=== PATIENT | female | born 1995 | race African-American/Black ===

== ENCOUNTER 2024-11-13 13:00 | Outpatient (CLI) | payer MEDICAID, SELFPAY ==
--- NOTE | 2024-11-13 13:00 | CRLHL7_ITS ---
For Patients: As a result of the Cures Act, medical imaging exams and procedure reports are released immediately into your electronic medical record. You may view this report before your referring provider. If you have questions, please contact your health care provider. OB ULTRASOUND FIRST TRIMESTER, 11/13/2024 INDICATION: Dating and viability. SURGERY: None. TECHNIQUE: Real time perez scale imaging of the fetus was performed. Transvaginal. FINDINGS: Estimated LMP: 08/25/2024. KAMALA by LMP: 06/02/2025. KAMALA by US: GA: 11 w, 2 d. Previous US: No. CRL: 3.0 cm. 10 w 2 d. KAMALA: 06/11/2025. FHR: 169 BPM. Gestational sac: 4.6 cm. Appears within normal limits. Yolk sac: 4.9 mm. Appears within normal limits. Right ovary: 2.4 x 1.6 x 2.4 cm. Within normal limits. Left ovary: 4.2 x 1.6 x 3.0 cm. Within normal limits. IMPRESSION: Sonographic gestational age 10 weeks 0 days and sonographic due date 06/11/2025. Zuhair Hooks M.D. Diagnostic Radiologist [email or web address] BHUMI/she DW/Dictated by: Zuhair Hooks MD @ 11/15/2024 4:42:00 PM (Electronically Signed)
== END 2024-11-13 13:01 | disposition home or self-care (01) ==
LOC: US 13:01
PROVIDERS: Visit Provider Registered Nurse
DX: Z34.91 Encounter for supervision of normal pregnancy, unspecified, first trimester (principal); Z3A.10 10 weeks gestation of pregnancy
CPT/HCPCS: 76817

== ENCOUNTER 2024-11-13 14:04 | Outpatient (CLI) | payer MEDICAID, SELFPAY ==
[2024-11-13 19:06] LABS: Chlamydia DNA Amplified* NOT DETECTED (No Detected); GC DNA Amplified* NOT DETECTED (No Detected)
== END 2024-11-13 14:05 | disposition home or self-care (01) ==
PROVIDERS: Visit Provider Registered Nurse
DX: Z34.91 Encounter for supervision of normal pregnancy, unspecified, first trimester (principal); Z3A.10 10 weeks gestation of pregnancy
CPT/HCPCS: 76817; 83020; 83021; 85660; 86592; 86703; 86704; 86706; 86762; 86787; 86803; 86850; 86900; 86901; 87086; 87340; 87491; 87591

== ENCOUNTER 2025-01-15 10:08 | Outpatient (CLI) | payer MEDICAID, SELFPAY ==
--- NOTE | 2025-01-15 10:15 | CRLHL7_ITS ---
For Patients: As a result of the Century Cures Act, medical imaging exams and procedure reports are released immediately into your electronic medical record. You may view this report before your referring provider. If you have questions, please contact your health care provider. OBSTETRICAL ULTRASOUND ??? ANATOMY SURVEY, 01/15/2025 INDICATION: Basic anatomy survey. CLINICAL HISTORY: KAMALA by LMP: 06/11/2025 Gestational age: 19 weeks 0 days TECHNIQUE: Real-time perez-scale transabdominal imaging of the fetus was performed. PREVIOUS ULTRASOUND: 11/13/2024 FINDINGS: position: Vertex Cervix: Visualized Technique: Transabdominal Length of closed cervix: 4.1 cm Placenta position: Posterior Technique: Transabdominal Placenta tip to internal os: 6.9 cm Umbilical cord: 3-vessel cord Placental insertion: Central Amniotic fluid: 5 cm SDP (greater than/equal to 2 to less than 8 cm) ANATOMY SURVEY: Observed Structures Cerebellum: Yes; 1.9 cm, 19 weeks 2 days Cisterna magna: Yes; 3.7 mm Nuchal fold: Yes; 3.8 mm Lateral ventricle: Yes; 6.1 mm CSP: Yes Midline falx: Yes Choroid plexus: Yes Spine: Yes Stomach: Yes Abdominal cord insert: Yes Urinary bladder: Yes Kidneys: Yes Diaphragm: Yes Nose/lips: Yes Orbital view: Yes Profile: Yes Upper extremities: Yes Lower extremities: Yes Hands: Yes Feet: Yes 4-chamber heart: Yes LVOT: Yes RVOT: Yes 3VV: Yes 3VTV: Yes BIOMETRY BPD: 4.2 cm, 18 weeks 6 days, 43% HC: 15.7 cm, 18 weeks 4 days, 24% AC: 13.7 cm, 19 weeks 1 day, 49% FL: 2.9 cm, 18 weeks 6 days, 40% FL/AC: 21.25% HC/AC ratio: 1.15 heart rate: 149 bpm age by this ultrasound: 19 weeks 0 days KAMALA by this ultrasound: 06/11/2025 Estimated weight: 267 grams (0 pounds 9 ounces) Percentile by KAMALA: 43% IMPRESSION: 1) Concordance of clinical and sonographic dating. 2) Normal anatomic survey. ZUHAIR BROWN M.D. Diagnostic Radiologist [email or web address] Transcribed: 5:42 p.m. MELISSA/Dictated by: Zuhair Brown MD @ 01/15/2025 4:47:00 PM (Electronically Signed)
== END 2025-01-15 10:09 | disposition home or self-care (01) ==
PROVIDERS: Visit Provider Obstetrics & Gynecology
DX: Z34.92 Encounter for supervision of normal pregnancy, unspecified, second trimester (principal); Z3A.19 19 weeks gestation of pregnancy
CPT/HCPCS: 76805

== ENCOUNTER 2025-03-12 11:00 | Outpatient (CLI) | payer MEDICAID, SELFPAY | END 2025-03-12 11:01 | disposition home or self-care (01) | LOC: NFLDREF 03-16 12:03 | PROVIDERS: Visit Provider Obstetrics & Gynecology | DX: Z34.92 Encounter for supervision of normal pregnancy, unspecified, second trimester (principal); Z3A.27 27 weeks gestation of pregnancy | CPT/HCPCS: 86592 ==

== ENCOUNTER 2025-05-12 11:00 | Outpatient (CLI) | payer MEDICAID, SELFPAY ==
[2025-05-12 11:26] VITALS: BP 129/79; PULSE 113
[2025-05-12 11:40] LABS: Amnisure Rom* Negative
--- NOTE | 2025-05-12 12:03 | CRLHL7_ITS ---
For Patients: As a result of the Century Cures Act, medical imaging exams and procedure reports are released immediately into your electronic medical record. You may view this report before your referring provider. If you have questions, please contact your health care provider. INDICATION: Food check. TECHNIQUE: Limited ultrasound OB pelvis transabdominal. COMPARISON: None. FINDINGS: Single living intrauterine gestation. heart rate: 154 beats per minute. Presentation: Cephalic. Placenta: Posterior. ALEX: 10.0 centimeters. SDP 4.7 centimeters IMPRESSION.: 1. Live intrauterine in cephalic presentation with heart rate of 154 beats per minute. ALEX is 10.0 centimeters. Dictated by Justin Awan MD @ 05/12/2025 12:29:11 PM (Electronically Signed)
[2025-05-12 13:22] LABS: Appearance Urine Clear (Clear)
[2025-05-12 13:31] LABS: Trichomonas No Trichomonas Seen (None Seen)
--- NOTE | 2025-05-12 16:58 | PM.OBLDTN ---
OB - Triage/Final Diagnosis Visit Information Narrative: The patient is a 30 year old 3 para 2 at 35 weeks gestation by first-trimester ultrasound, who presents for rule out PPROM. Patient notes she had gone out of the shower and dried off, she had episode of leaking of clear fluid down her legs. She notes she put on a pad thereafter, and had to change this due to persistent leaking. Called to triage, where she was recommended to present to the Center. On arrival, patient was noted to be hemodynamically stable and well-appearing. Reactive NST. AmniSure was obtained, found to be negative. Given her clinical history, I did recommend we proceed with a more comprehensive evaluation to thoroughly exclude any possibility of PPROM. Specifically, we proceeded with a speculum exam after a 20 minute period of rest to allow for pooling. External genital exam within normal limits, perineum was noted to be dry. Speculum inserted, vaginal mucosa is pink and well rugated. Small volume thin and white discharge was noted, no pooling. Cervix is visually closed, small volume cervical mucus noted. My impression overall was most consistent with physiologic discharge. Wet prep obtained and sent. Characteristic sample of the thin/white discharge was obtained and swabbed on to a slide, where ferning was found to be negative. PH of 4.0. Ultrasound was recommended for assessment of amniotic fluid - this was subsequently normal with a MVP of 4.7 cm, ALEX of 10 cm. [place] did suggest irregular contractions, but patient noted these only presented as slight tightening and were entirely nonpainful. After comprehensive evaluation, PPROM was sufficiently excluded. Strict return precautions were reinforced for persistent or worsening symptoms. Encouraged return precautions for regular/painful uterine contractions, vaginal bleeding or decreased movement as well. All questions answered. Patient has a office visit in the clinic tomorrow. Evaluation Laboratory results: Laboratory Tests 05/12/25 05/12/25 Range/Units 12:45 11:26 Urine Color Yellow (Yellow) Urine Appearance Clear (Clear) Urine pH 6.0 (5.0-8.5) Ur Specific [place] 1.010 (1.000-1.030) Urine Protein Negative (Negative) Urine Glucose (UA) Trace A (Negative) Urine Ketones 1+ A (Negative) Urine Blood Negative (Negative) Urine Nitrite Negative (Negative) Urine Bilirubin Negative (Negative) Urine Urobilinogen 0.2 (0.2-1.0) Ur Leukocyte Esterase Trace A (Negative) Urine RBC 0-2 (0-2) Urine WBC 5-10 A (0-5) Ur Squamous Epith Cells Few (None-Few) Urine Bacteria Few A (None) Membrane Rupture Negative Vaginal Trichomonas No Trichomonas Seen (None Seen) Vaginal Yeast Yeast Seen A (None Seen) Vaginal Clue Cells No Clue Cells Seen (None Seen) Group B Strep DNA Pending Vital signs: Vital Signs - 24 hr 05/12/25 11:26 Pulse Rate 113 H Blood Pressure 129/79
[2025-05-13 09:56] LABS: Strep B DNA Probe Negative (Negative)
[2025-05-13 10:06] LABS: Strep B Susceptibility Needed? No
--- NOTE | 2025-05-21 17:30 | PC.OBNST ---
NST Note NST Note Start: 05/12/25 11:08 Freq: ONCE Status: Discharge Protocol: Document 05/12/25 12:51 POT (Rec: 05/12/25 13:33 POT No Response) NST Note 3 Para (# of births) 2 EDC 06/11/25 Gestational Age In 35 Weeks & 5 Days Weeks & Days Patient Presented Leaking fluid with Complaint(s) of Reactive Yes LIVAN Falk, RN Date 05/12/25 Reactive Yes LIVAN Mcdonald RN Date 05/12/25 OB NST charge Yes Complete NST Note Yes via Write Note The provider's electronic signature indicates the NST is reactive/appropriate for gestational age. *Note to provider: If an addendum is required, open the patient's chart and click on the note under the Nurse/Allied Health tab.
[2025-06-18 18:03] LABS: Fern Test* Ferning not present
[2025-06-18 18:05] LABS: Vaginal pH* 4.0 (3.8-4.5)
== END 2025-05-12 13:10 | disposition home or self-care (01) ==
LOC: OB OUT 11:00 → OB 11:01
PROVIDERS: Visit Provider Obstetrics & Gynecology
DX: O98.813 Other maternal infectious and parasitic diseases complicating pregnancy, third trimester (principal); B37.31 Acute candidiasis of vulva and vagina; Z3A.35 35 weeks gestation of pregnancy
CPT/HCPCS: 59025; 76815; 81001; 81003; 83986; 84112; 87081; 87086; 87186; 87210; 87653; G0463; Q0114

== ENCOUNTER 2025-05-28 13:46 | Outpatient (CLI) | payer MEDICAID, SELFPAY ==
--- NOTE | 2025-05-28 13:45 | CRLHL7_ITS ---
For Patients: As a result of the Century Cures Act, medical imaging exams and procedure reports are released immediately into your electronic medical record. You may view this report before your referring provider. If you have questions, please contact your health care provider. KAMALA by [facility]/US: 06/11/2025. GA: 38 w, 0 d. Single. Comparison: US 05/12, and 01/15. INDICATION: S>D. TECHNIQUE: Real time perez scale imaging of the fetus was performed. Transabdominal imaging performed. CERVIX: Not visualized. POSITIONING: Vertex. AMNIOTIC FLUID: 4.2 cm. SDP (N: greater than 2 x 1 cm) PLACENTA: Technique: Transabdominal. PLACENTA POSITION: Fundal. DOPPLER: heart rate: 141 bpm. BIOMETRY: BPD: 8.8 cm, 35 weeks 3 days, 10th percentile. HC: 32.7 cm, 37 weeks 1 day, 13th percentile. AC: 36.3 cm, 40 weeks 1 day, >97th percentile. FL: 7.1 cm, 36 weeks 2 days, 13th percentile. FL/AC Ratio: 19.49 percentile. HC/AC Ratio: 0.90. EFW: 3477 g. Weight: 7 lbs, 11 oz. age by this US: 37 w, 2 d. KAMALA by this US: 06/16/2025. Percentile by KAMALA: 72 percent. IMPRESSION: 1. Sonographic gestational age 37 weeks 2 days and sonographic due date 06/16/2025. Sonographic age is 5 days behind clinical age. 2. Estimated weight 72nd percentile. 3. Abdominal circumference greater than 97th percentile. Zuhair Hooks M.D. Diagnostic Radiologist [email or web address] BHUMI/she DW/Dictated by: Zuhair Hooks MD @ 05/29/2025 7:03:00 AM (Electronically Signed)
== END 2025-05-28 13:47 | disposition home or self-care (01) ==
LOC: US 13:47
PROVIDERS: Visit Provider Obstetrics & Gynecology
DX: Z34.93 Encounter for supervision of normal pregnancy, unspecified, third trimester (principal); Z3A.37 37 weeks gestation of pregnancy
CPT/HCPCS: 76816; 82565; 82570; 84156; 84450; 84460; 84520

== ENCOUNTER 2025-06-01 02:24 | Inpatient (IN) | payer MEDICAID, SELFPAY ==
[2025-06-01] VITALS (24 sets, daily range): BP systolic 95–153; BP diastolic 50–87; PULSE 81–151; RESP 16–18; TEMP 36.7–37; O2SAT 95–100; BMI 37.3
[2025-06-01 02:49] LABS: Hematocrit 36.9 % (33.0-51.0); Hemoglobin* 11.9 gm/dL (12.0-16.0); Immature Granulocytes Pct Auto 0.4 %; Mean Corpuscular HGB Conc 32 gm/dL (32-36); Mean Corpuscular Hemoglobin 28 pg (26-34); Mean Corpuscular Volume 86 fL (80-100); RDW Coefficient of Variation % 13.4 % (11.5-15.5); Red Blood Count 4.31 m/uL (4.00-5.20); White Blood Count* 13.36 K/uL (4.50-11.00)
[2025-06-01 02:51] LABS: Immature Granulocytes Abs Auto 0.10 K/uL (0.00-0.30); Lymphocytes Absolute Auto 2.90 K/uL (0.90-2.90); Slide Review Reflex No
[2025-06-01] MEDS: LACTATED RINGERS 1000 ML 1,000 ML 1200 ML IV (02:57)
[2025-06-01] MEDS: ROPIVACAINE 0.2% 100 ml 100 ML 12 MG EPIDURAL (03:19)
[2025-06-01] MEDS: BUPIVACAINE 0.25% PF 10 ML 10 ML ML EPIDURAL (03:20)
--- NOTE | 2025-06-01 03:31 | PM.ANBPRC ---
[facility] Medical History Chlamydia ?A74.9 - Chlamydial infection, unspecified (ICD-10) Galactorrhea not associated with childbirth ?N64.3 - Galactorrhea not associated with childbirth (ICD-10) Delayed delivery after SROM (spontaneous rupture of membranes) ?O42.90 - Premature rupture of membranes, unspecified as to length of time between rupture and onset of labor, unspecified weeks of gestation (ICD-10) Dysmenorrhea ?N94.6 - Dysmenorrhea, unspecified (ICD-10) Status post vacuum-assisted vaginal delivery ?Z87.59 - Personal history of other complications of , childbirth and the puerperium (ICD-10) Vitamin D deficiency ?E55.9 - Vitamin D deficiency, unspecified (ICD-10) Surgical History History of tonsillectomy ?Z90.89 - Acquired absence of other organs (ICD-10) H/O colonoscopy ?Z98.890 - Other specified postprocedural states (ICD-10) Social History What is your current living situation?: I presently have a place to live Problems where you live: no known problems In the past 12 months, utilities in danger of being shut off: no In past 12 months, lack of transportation kept you from medical appts, meetings, work, or getting things needed for daily living: no In the past 12 mos, have been you worried that your food would run out before you had money to buy more?: never true In the past 12 mos, the food you bought just didn't last and you didn't have money to buy more?: never true Smoking Status: Never smoker How often does anyone, including family, friends and others, physically hurt you: never How often does anyone, including family, friends and others, insult or talk down to you: never How often does anyone, including family, friends and others, threaten you with harm: never How often does anyone, including family, friends and others, scream or curse at you: never Meds Home Medications and Allergies Home Medications ?Medication ?Instructions ?Recorded ?Confirmed ?Type docosahexaenoic acid 200 mg mg PO 11/13/24 05/28/25 History capsule ( DHA) docusate sodium 100 mg capsule 100 mg PO QDAY 12/11/24 05/28/25 History (Colace) calcium carbonate (Tums) 200 mg PO BID 04/30/25 05/28/25 History Allergies Allergy/AdvReac Type Severity Reaction Status Date / Time diphenhydramine (From Allergy Intermediate Verified 05/28/25 14:19 Benadryl) Results Labs Labs: Laboratory Results - last 24 hr 06/01/25 02:40 WBC 13.36 H RBC 4.31 Hgb 11.9 L Hct 36.9 MCV 86 MCH 28 MCHC 32 RDW Coeff of Wilber 13.4 Plt Count 336 Neut % (Auto) 68.3 Lymph % (Auto) 21.6 [place] % (Auto) 8.5 Eos % (Auto) 0.9 Baso % (Auto) 0.3 Neut # (Auto) 9.10 H Lymph # (Auto) 2.90 [place] # (Auto) 1.10 H Eos # (Auto) 0.10 Baso # (Auto) 0.00 Abs Immat Gran (auto) 0.10 Imm/Tot Granulo (auto) 0.4 Vital Signs Vital Signs: Last Vital Signs Pulse 90 06/01/25 03:28 BP 133/84 06/01/25 03:28 Pulse Ox 100 06/01/25 03:20 Anesthesia Procedures Epidural Insertion Patient Location: OB Start Time: 02:45 Stop Time: 03:40 Start Date: 06/01/25 Stop Date: 06/01/25 Reason for Block: procedure for pain Patient Position: sitting Performed By: Louis Díaz Preanesthetic Checklist: IV checked, risks and benefits discussed, surgical consent, monitors and equipment checked, pre-op evaluation, timeout performed and anesthesia consent Prep: chlorhexidine gluconate Monitoring: blood pressure monitoring, continuous pulse oximetry and heart rate Approach: midline Vertebral Space: lumbar (1-5) Epidural Technique: BELL saline Needle Type: Tuohy needle Injection Technique: continuous catheter Needle gauge: 17 Needle Length (cm): 10 cm Needle Insertion Depth (cm): 6 Catheter Gauge: 19 Catheter Type: multi-orifice Catheter at skin depth (cm): 12 Test Dose Result: negative and lidocaine 1.5% with epinephrine 1 to 200,000
[2025-06-01] MEDS: OXYTOCIN 30 unit/500 ML in NS 30 UNIT/500 ML BAG 300 UNIT IVPB (04:19)
--- NOTE | 2025-06-01 04:46 | P.LDBA_ITS ---
Subjective History of Present Illness Time Seen by Provider: 03:30 Date Seen: 06/01/25 Narrative: Patient is being admitted to Labor and Delivery for spontaneous labor. She is a 30 year old at weeks gestation. Her full history and physical was dictated by myself on 05/21/25. Please see this for details. Rula ANDERSONOM at 0130 with onset of increasingly frequent and painful contractions. She presented to labor and delivery and was found to be 7/100/0 and asking for an epidural. Specific Issues/Plans G 3 P 2001 : Alireza Children: Leon Lozano Baby: Girl! #BMI 33.4. * Hemoglobin A1c * Recommend daily low dose aspirin starting at 12 weeks due to obesity and sociodemographic characteristic: race #Closely spaced pregnancies. Last delivery 12/29/2023. # Increased BP and swelling at 38 weeks. * Platelets 290, AST 37, ALT 12, creatinine 0.6, P/C 0.16 * Daily home blood pressure monitoring recommended Flu: Recommended. Declines. Covid: Recommended. Declines. Tdap: declined 04/09/2025 H&P: By Dr. Peter on 05/21/25 Ultrasounds: * FAS on 01/15: EFW 367g at 43%ile. BPD 43%ile, HC 24%ile, AC 49%ile, FL 40%ile. Normal visualized anatomy. Posterior placenta, no previa/low lying. MVP 5cm. 3 vessel cord. Cx 4.1cm. * 05/28/2025 growth ultrasound: EFW 7 lb 11 oz (72%), BPD 10%, HC 13%, AC >97%, FL 13%, SDP 4.2 cm, vertex presentation. Mental Health: OB - Problem Based A/P Additional Plan (1) Spontaneous onset of labor: Status: Acute Plan - Will admit for spontaneous labor - CEREAL POPPER notified for epidural placement - GBS negative - Otherwise, expectant management with anticipated vaginal delivery NST on admission - Baseline 130 bmp, moderate variability, + accel, early decel noted. Cat I - [place]: Q2 minutes OB Exam Physical Exam Vital signs: Pulse BP Pulse Ox 123 H 122/62 100 06/01/25 04:39 06/01/25 04:39 06/01/25 03:20 Narrative: Physical exam: General: In pain from labor contractions Psych: Alert and oriented x3, full affect HEENT: Normocephalic, atraumatic Lungs: Labored breathing during contractions Neuro: No focal deficit. Mentating appropriately Pelvic exam: 7/100/0 per RN
--- NOTE | 2025-06-01 04:54 | W.PM.VAGDEL1 ---
Procedure Delivery date: 06/01/25 Procedure Done: Global Intrapartal Events: None Delivery monitor: external FHT and external uterine Route of delivery: Laceration description: Perineal - 1st Degree Delivery repair: Vicryl Estimated blood loss (mL): 100 (QBL ) Anesthesia type: Epidural Disposition: floor Narrative: The patient is a 30 year-old G G3 P 2001 admitted on 06/01/2025 at 38 and 3/7 weeks gestation for spontaneous rupture of membrane and onset of spontaneous labor. GBS negative Labor Analgesia: Epidural Pitocin: Only for active 3rd stage management SROM: 06/01/2025 at 0130, with clear fluid Labor onset: 06/01/2025 at 0130 Complete: 06/01/2025 at 0342 Pushin06/01/2025 at 0347 heart tones during second stage were Cat II due to intermittent late deceleration to the 90s when station reached +4. Resolved spontaneously. At 0415 a viable female delivered in vertex OA presentation over intact via spontaneous vaginal delivery. The 's body was delivered in the usual manner without difficulty. The was placed on maternal abdomen. The cord was clamped and cut after a 30-60 second delay. The nose and mouth were bulb suctioned. Infant weight: pending. 8 at 1 minute and 8 at 5 minutes. Shoulder dystocia: No. Nuchal cord: No Placenta delivered spontaneously and complete at 0420 with a 3-vessel cord. Placenta examined and noted to be complete. Placenta was not sent to pathology. The cervix and vagina were inspected for lacerations. Laceration(s): 1st degree perineal, repaired with 2-0 vicryl in a continuous fashion Complications: None Quantitative blood loss: 100 cc Cord gases: Not indicated Sponge and needles counts are correct. Mother and were stable at the time of this note.
[2025-06-01] MEDS: IBUPROFEN 600 MG TABLET PO ×3 (07:30→19:20)
[2025-06-01] MEDS: DOCUSATE SODIUM 100 MG CAPSULE PO (10:00)
[2025-06-01] MEDS: ACETAMINOPHEN 500 MG TABLET 1000 MG PO ×2 (10:00→16:01)
--- NOTE | 2025-06-01 10:36 | PM.ANPOST ---
Post Anesthesia Note Post Anesthesia Note Patient seen: Inpatient Respiratory Status: adequate Cardiovascular Status: adequate Mental Status: baseline Pain: adequate Temp: baseline Anesthetic awareness: N/A Complications: none Follow care: none
[2025-06-02 00:34] VITALS: BP 131/85; PULSE 94; RESP 16; O2SAT 95
[2025-06-02] MEDS: ACETAMINOPHEN 500 MG TABLET 1000 MG PO (00:37)
[2025-06-02 04:41] VITALS: BP 117/86; PULSE 89; RESP 16; O2SAT 100
[2025-06-02 05:57] LABS: Hemoglobin* 9.9 gm/dL (12.0-16.0)
[2025-06-02 07:41] VITALS: BP 119/63; PULSE 80; RESP 18; TEMP 36.6; O2SAT 100
--- NOTE | 2025-06-02 07:44 | PM.OBDSVD1 ---
DS: Providers Provider Date Seen: 06/02/25 Date of admission: 06/01/25 02:24 Primary care physician: Not a Local Provider Admitting Clinician: Edie Peter MD Attending Physician on discharge: Laura Smith CNM DS: Diagnosis Discharge Diagnosis (1) care and examination immediately after delivery: Status: Acute (2) Lactating mother: Status: Acute (3) Anxiety: Status: Acute (4) Elevated blood pressure reading without diagnosis of hypertension: Status: Acute (5) Anemia due to acute blood loss: Status: Acute Exam Narrative: Exam Narrative: GENERAL APPEARANCE:? normal affect, alert, no distress MOOD:? appropriate CHEST:? clear to auscultation HEART:? regular rate and rhythm ABDOMEN:? soft, non-tender the uterine fundus is At Umbilicus, Midline and is appropriate for the stage of recovery. PERINEUM:? mild edema of the perineum, there is a Perineal Laceration,?1st degree that is healing well. EXTREMITIES:? normal and no edema Const: Vital Signs, click to edit/add: Vital Signs - 24 hr 06/01/25 09:25 06/01/25 14:33 06/01/25 18:21 Temperature 98.1 F 98.0 F 98.1 F Pulse Rate [Pulse Oximeter] 82 96 89 Respiratory Rate 16 16 16 Blood Pressure [Le ft Arm] 133/84 129/83 118/77 Pulse Oximetry 100 95 98 Oxygen Delivery Me thod Room Air Room Air Room Air 06/01/25 20:25 06/02/25 00:34 06/02/25 04:41 Temperature 98.6 F Pulse Rate [Pulse Oximeter] 88 94 89 Respiratory Rate 18 16 16 Blood Pressure [Le ft Arm] 121/87 131/85 117/86 Pulse Oximetry 98 95 100 Oxygen Delivery Me thod Room Air Room Air Room Air Documenting provider has reviewed patient's vital signs: yes OB - DS: Summary Hospital Course Hospital Course: Rula is a 30 y.o. G 3 P 3 who was admitted to L & D for spontaneous onset of labor. ?She had a NVD that was uncomplicated. The patient feels well. ?The pain is well controlled with current medications. ?She has no new complaints. ?She is pumping and bottle feeding and reports things are going well. She usually transitions to at home after her milk comes in without any problems. the patient has done well.? Vitals have been stable.? She has remained afebrile.? Has a good appetite, is tolerating a general diet. ?She is voiding without difficulty.? She is passing gas and has not had a bowel movement.? She is ambulating and denies any dizziness.? Has small amount of rubra lochia. She is undecided for prevention. Problems: Anemia Discharge home with baby.? Follow up in 2 weeks and 6 weeks.? , may see if needed? Hgb 9.9. Iron supplement ordered orally every other day? Elevated BP without diagnosis of HTN?? For pain control of perineum, breast and pelvic pain, take 600 mg Ibuprofen every 6 hours as needed by mouth or 1000 mg acetaminophen (Tylenol) every 6 hours by mouth as needed. You can alternate these so you are taking something every 3 hours as needed. A heating pad can also be used for your abdomen or breasts. You may also take docusate sodium up to twice daily to soften your stools and help to prevent constipation. You may wean off of it when your stools return to normal.? Peripartum Data delivery method: Vaginal Laceration description: Perineal - 1st Degree complications: none Infant Gender: Female Discharge Plan: Home Status at Discharge Functional status at discharge: independent ambulation Overall status at discharge: patient is progressing back to baseline Time Spent with Patient Time attestation: Total time spent providing and/or coordinating discharge services: Time spent: Less than 30 minutes Discharge Plan Discharge Disposition: Home, Self-Care Date of Admission: 06/01/25 02:24 Attending Provider on Discharge: Laura Smith Primary Care Provider: Provider,Not a Local Condition: Stable Anticipated Discharge Date/Time: 06/02/25 12:00 Discharge Medications: New ferrous sulfate 325 mg (65 mg iron) Tablet 325 mg PO Q OTHER DAY Qty: 60 0RF docusate sodium 100 mg Capsule 100 mg PO DAILY Qty: 90 0RF ibuprofen 600 mg Tablet 600 mg PO Q6H PRNQty: 60 0RF acetaminophen 500 mg Tablet 1,000 mg PO Q6H PRN (Reason: pain/fever) Qty: 0 0RF Continued DHA 200 mg capsule PO docusate sodium [Colace] 100 mg capsule 100 mg PO QDAY calcium carbonate [Tums] 200 mg calcium (500 mg) tablet,chewable 200 mg PO BID Discharge Orders: Discharge Order (Routine); Ordered 06/02/25 Ordered By: Laura Smith Patient Education: OB Vaginal/Breast Feeding Additional Instructions: Discharge instructions were reviewed with the patient including signs and symptoms of infection and home going medications Nothing vaginally for 6 weeks: no tampons or intercourse Off Work or School for 6 weeks 2-week visit: discuss feeding concerns, review control options and screen for anxiety/depression. 6-week visit for an annual exam. consultation services are available to all mothers and babies for the first year after delivery.? To make an appointment, please call [phone]. Activity Level: Activity as Tolerated Discharge Diet: Regular Follow Up Appointments: [facility] [Provider Group] Forms: Patient Belongings, MyHealth Info Instructions
[2025-06-02] MEDS: DOCUSATE SODIUM 100 MG CAPSULE PO (10:12)
[2025-06-02 12:16] VITALS: BP 118/78; PULSE 83; RESP 16; TEMP 36.8; O2SAT 98
== END 2025-06-02 13:05 | disposition home or self-care (01) | DRG 806 ==
LOC: OB OUT 03:07 → OB 03:07
PROVIDERS: Admitting Provider Obstetrics & Gynecology; Visit Provider Obstetrics & Gynecology
DX: O99.214 Obesity complicating childbirth (principal); D62 Acute posthemorrhagic anemia; Z37.0 Single live birth; O90.81 Anemia of the puerperium; R03.0 Elevated blood-pressure reading, without diagnosis of hypertension; O70.0 First degree perineal laceration during delivery; E66.9 Obesity, unspecified; O99.344 Other mental disorders complicating childbirth; F41.9 Anxiety disorder, unspecified; Z3A.38 38 weeks gestation of pregnancy
CPT/HCPCS: 01967; 36415; 85018; 85025; 86592; A9270; J0665; J2795; J7120

== ENCOUNTER 2025-06-04 12:43 | Outpatient (CLI) | payer MEDICAID, SELFPAY | END 2025-06-04 12:44 | disposition home or self-care (01) | PROVIDERS: Visit Provider Obstetrics & Gynecology | DX: O14.93 Unspecified pre-eclampsia, third trimester (principal) | CPT/HCPCS: 82565; 84450; 84460 ==

== ENCOUNTER 2025-07-12 11:41 | Outpatient (CLI) | payer MEDICAID, SELFPAY | END 2025-07-12 11:42 | disposition home or self-care (01) | LOC: LKVREF 11:44 | PROVIDERS: Visit Provider Physician Assistant | DX: N94.89 Other specified conditions associated with female genital organs and menstrual cycle (principal) | CPT/HCPCS: 87086 ==